=== PATIENT | female | born 1955 ===

== ENCOUNTER 2017-08-17 14:42 | Emergency (ER) | payer OTHER ==
[2017-08-17 14:48] VITALS: BP 132/75; PULSE 88; RESP 20; TEMP 97.9; O2SAT 98
--- NOTE | 2017-08-17 16:09 | ED PDOC ---
Lower Extremity Pain/Injury Time Seen by Provider: 08/17/17 15:16 Chief Complaint (Nursing): Lower Extremity Problem/Injury Chief Complaint (Provider): Right calf pain History Per: Patient History/Exam Limitations: no limitations Additional Complaint(s): 61yo female with history of CVA, presents to ED for evaluation of right calf pain. Patient states she was walking down the stairs and thought there was one more step, so when attempting to step down she felt a sharp pain in her right calf. She denies any other trauma or injuries. She also denies any chest pain, shortness of breath, recent long distance travel or immobilizations. Patient offers no other medical complaints. Past Medical History Reviewed: Historical Data, Nursing Documentation, Vital Signs Vital Signs: Last Vital Signs Temp 97.9 F 08/17/17 14:45 Pulse 88 08/17/17 14:45 Resp 20 08/17/17 14:45 BP 132/75 08/17/17 14:45 Pulse Ox 98 08/17/17 14:45 - Medical History PMH: Diabetes, HTN - Surgical History Surgical History: Cholecystectomy - Family History Family History: States: Unknown Family Hx - Immunization History Hx Tetanus Toxoid Vaccination: No (not sure of last tetanus) - Home Medications Home Medications: Ambulatory Orders Medication Instructions Recorded Atorvastatin [Lipitor] 40 mg PO DAILY #30 tab 12/01/15 Clopidogrel [Plavix] 75 mg PO DAILY #30 tab 12/01/15 GlipiZIDE [Glucotrol] 10 mg PO BID #0 tab 12/01/15 Losartan [Cozaar] 100 mg PO DAILY #0 tab 12/01/15 Metformin HCl 1,000 mg PO BID #0 tablet 12/01/15 amLODIPine [Norvasc] 5 mg PO DAILY #0 tab 12/01/15 Cephalexin [Keflex] 500 mg PO TID #21 capsule 02/23/16 - Allergies Allergies/Adverse Reactions: Allergies Allergy/AdvReac Type Severity Reaction Status Date / Time ibuprofen Allergy Mild RASH Verified 08/17/17 14:45 iodine Allergy RASH Verified 08/17/17 14:45 Review of Systems ROS Statement: Except As Marked, All Systems Reviewed And Found Negative Constitutional: Negative for: Fever, Sweats Cardiovascular: Negative for: Chest Pain Respiratory: Negative for: Shortness of Breath Musculoskeletal: Positive for: Leg Pain (right calf pain) Physical Exam - Reviewed Nursing Documentation Reviewed: Yes Vital Signs Reviewed: Yes - Physical Exam Appears: Positive for: Non-toxic, No Acute Distress Head Exam: Positive for: ATRAUMATIC, NORMAL INSPECTION, NORMOCEPHALIC Skin: Positive for: Normal Color Eye Exam: Positive for: Normal appearance Neck: Positive for: Supple Respiratory: Negative for: Accessory Muscle Use, Respiratory Distress Pulses-Dorsalis Pedis (L): 2+ Pulses-Dorsalis Pedis (R): 2+ Pulses-Post. Tibialis (L): 2+ Pulses-Post. Tibialis (R): 2+ Extremity: Positive for: Normal ROM, Calf Tenderness (marked tenderness to right calf), Other (achilles tendon palpable on right lower extremity, no changes compared to left achilles tendon). Negative for: Deformity, Swelling Neurologic/Psych: Positive for: Alert, Oriented. Negative for: Motor/Sensory Deficits - ECG O2 Sat by Pulse Oximetry: 98 (RA) Pulse Ox Interpretation: Normal Medical Decision Making Medical Decision Making: Impression: Right calf pain r/o DVT Plan: -- US Doppler RLE -- Tylenol PO (-) DVT Scribe Attestation: Documented by Tabitha Reddy, acting as a scribe for DOUGIE Alva. Provider Scribe Attestation: All medical record entries made by the Scribe were at my direction and personally dictated by me. I have reviewed the chart and agree that the record accurately reflects my personal performance of the history, physical exam, medical decision making, and the department course for this patient. I have also personally directed, reviewed, and agree with the discharge instructions and disposition. Disposition - Clinical Impression Clinical Impression: Muscle strain - Patient ED Disposition Is Patient to be Admitted: No Counseled Patient/Family Regarding: Diagnosis, Need For Followup - Disposition Referrals: Jake Moe DPM [[facility]] - Disposition: Routine/Home Disposition Time: 17:09 Condition: GOOD Instructions: Muscle Strain Forms: [employer] (Turkish) Print Language: MALAWIAN
--- NOTE | 2017-08-17 17:32 | US ---
PROCEDURE: Right lower extremity venous duplex Doppler. HISTORY: calf pain COMPARISON: None available. TECHNIQUE: Common femoral, superficial femoral, popliteal and posterior tibial veins were evaluated. Flow was assessed with color Doppler, compressibility, assessment of phasic flow and augmentation response. FINDINGS: COMMON FEMORAL VEIN: Unremarkable. SUPERFICIAL FEMORAL VEIN: Unremarkable. POPLITEAL VEIN: Unremarkable. POSTERIOR TIBIAL VEIN: Unremarkable. OTHER FINDINGS: None. IMPRESSION: No evidence of deep venous thrombosis in the right lower extremity.
== END 2017-08-17 17:50 | disposition home or self-care (01) ==
LOC: H.ER 14:42
DX: S86.811A Strain of other muscle(s) and tendon(s) at lower leg level, right leg, initial encounter (principal); Y92.89 Other specified places as the place of occurrence of the external cause; E11.9 Type 2 diabetes mellitus without complications; I10 Essential (primary) hypertension; Z79.84 Long term (current) use of oral hypoglycemic drugs

== ENCOUNTER 2017-09-20 15:46 | Emergency (ER) | payer OTHER ==
--- NOTE | 2017-09-20 16:23 | ED PDOC ---
Lower Extremity Pain/Injury Time Seen by Provider: 09/20/17 16:09 Chief Complaint (Nursing): Lower Extremity Problem/Injury History Per: Patient Onset/Duration Of Symptoms: Days (3) Current Symptoms Are (Timing): Still Present Severity: Mild Additional Complaint(s): Right calf pain x 3 days. Has been wearing boot for Achilles tendon injury x 3 weeks. Denies Chest pain or SOB. Past Medical History Vital Signs: Last Vital Signs Temp 98.5 F 09/20/17 15:48 Pulse 76 09/20/17 15:48 Resp 16 09/20/17 15:48 BP 123/68 09/20/17 15:48 Pulse Ox 100 09/20/17 15:48 - Medical History PMH: Diabetes, HTN - Surgical History Surgical History: Cholecystectomy - Family History Family History: States: Unknown Family Hx - Immunization History Hx Tetanus Toxoid Vaccination: No (not sure of last tetanus) - Home Medications Home Medications: Ambulatory Orders Medication Instructions Recorded Atorvastatin [Lipitor] 40 mg PO DAILY #30 tab 12/01/15 Clopidogrel [Plavix] 75 mg PO DAILY #30 tab 12/01/15 GlipiZIDE [Glucotrol] 10 mg PO BID #0 tab 12/01/15 Losartan [Cozaar] 100 mg PO DAILY #0 tab 12/01/15 Metformin HCl 1,000 mg PO BID #0 tablet 12/01/15 amLODIPine [Norvasc] 5 mg PO DAILY #0 tab 12/01/15 Cephalexin [Keflex] 500 mg PO TID #21 capsule 02/23/16 - Allergies Allergies/Adverse Reactions: Allergies Allergy/AdvReac Type Severity Reaction Status Date / Time ibuprofen Allergy Mild RASH Verified 09/20/17 16:05 iodine Allergy RASH Verified 09/20/17 16:05 Review of Systems Cardiovascular: Negative for: Chest Pain Respiratory: Negative for: Shortness of Breath Musculoskeletal: Positive for: Leg Pain Physical Exam - Physical Exam Appears: Positive for: Non-toxic, No Acute Distress Cardiovascular/Chest: Positive for: Regular Rate, Rhythm Respiratory: Positive for: CNT, Normal Breath Sounds Extremity: Negative for: Tenderness, Pedal Edema, Calf Tenderness, Swelling - ECG O2 Sat by Pulse Oximetry: 100 Disposition - Clinical Impression Clinical Impression: Calf pain - Patient ED Disposition Is Patient to be Admitted: Transfer of Care - Disposition Disposition: Transfer of Care Disposition Time: 16:51 Condition: FAIR Forms: [employer] (Georgian) Patient Signed Over To: Milton Alan
--- NOTE | 2017-09-20 17:18 | ED PDOC ---
- ECG O2 Sat by Pulse Oximetry: 100 (RA) Pulse Ox Interpretation: Normal Medical Decision Making Medical Decision Making: -- Patient signed to me by Dr. Anderson @ 1700, pending US. Time: 1740 EXTREMITY US RESULTS FINDINGS: COMMON FEMORAL VEIN: Unremarkable. SUPERFICIAL FEMORAL VEIN: Unremarkable. POPLITEAL VEIN: Unremarkable. POSTERIOR TIBIAL VEIN: Unremarkable. OTHER FINDINGS: None. IMPRESSION: No evidence of deep venous thrombosis in the right lower extremity. Time: 11b -- Patient to be discharged home. Scribe Attestation: Documented by Andrei Harp, acting as a scribe for Dr. Milton Alan MD Provider Scribe Attestation: All medical record entries made by the Scribe were at my direction and personally dictated by me. I have reviewed the chart and agree that the record accurately reflects my personal performance of the history, physical exam, medical decision making, and the department course for this patient. I have also personally directed, reviewed, and agree with the discharge instructions and disposition. Disposition - Clinical Impression Clinical Impression: Calf pain - POA Present On Arrival: None - Disposition Disposition: Routine/Home Disposition Time: 19:00 Condition: IMPROVED Additional Instructions: follow up with outpatient machine spreader in the office continue wearing the boot return to the ED with any worsening or concerning symptoms Instructions: Muscle and Bone Pain (DC) Forms: [employer] (Iranian)
[2017-09-20 20:37] VITALS: BP 124/69; PULSE 75; RESP 17; TEMP 98.1
[2017-09-20 23:26] VITALS: O2SAT 100
== END 2017-09-20 20:23 | disposition home or self-care (01) ==
LOC: H.ER 15:46
DX: M79.604 Pain in right leg (principal); E11.9 Type 2 diabetes mellitus without complications; I10 Essential (primary) hypertension; Z79.84 Long term (current) use of oral hypoglycemic drugs

== ENCOUNTER 2018-03-26 16:35 | Emergency (ER) | payer OTHER ==
[2018-03-26 16:44] VITALS: O2SAT 99
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
[2018-03-26 20:16] VITALS: BP 131/74; PULSE 79; RESP 15; TEMP 98.2
== END 2018-03-26 20:15 | disposition home or self-care (01) ==
LOC: H.ER 16:35
DX: G44.209 Tension-type headache, unspecified, not intractable (principal); R25.2 Cramp and spasm; E11.9 Type 2 diabetes mellitus without complications; I10 Essential (primary) hypertension; Z79.84 Long term (current) use of oral hypoglycemic drugs

== ENCOUNTER 2018-06-01 18:49 | Emergency (ER) | payer OTHER ==
[2018-06-01 19:04] VITALS: BP 156/72; PULSE 62; RESP 20; TEMP 97.9; O2SAT 100
[2018-06-01 21:12] LABS: BASO % 0.5 % (0.0-2.0); EOS # 0.1 K/uL (0.0-0.7); EOS % 2.4 % (0.0-4.0); HEMOGLOBIN 12.5 g/dL (12.0-16.0); LYMPH # 1.4 K/uL (1.0-4.3); LYMPH % 30.5 % (20.0-40.0); MEAN CELL VOLUME 90.2 fl (81.0-99.0); MEAN CORPUSCULAR HEMOGLOBIN 30.2 pg (27.0-31.0); MEAN CORPUSCULAR HGB CONC 33.5 g/dL (33.0-37.0); MEAN PLATELET VOLUME 7.6 fl (7.2-11.7); MONO # 0.4 K/uL (0.0-0.8); MONO % 9.3 % (0.0-10.0); NEUT # 2.6 K/uL (1.8-7.0); NEUT % 57.3 % (50.0-75.0); NRBC % 0.1 % (0.0-0.0); RBC 4.15 Mil/uL (3.80-5.20); RED CELL DISTRIBUTION WIDTH 12.7 % (11.5-14.5); WHITE BLOOD COUNT 4.5 K/uL (4.8-10.8)
[2018-06-01 21:17] LABS: ALB/GLOB RATIO 1.4 (1.0-2.1); ALBUMIN 4.1 g/dL (3.5-5.0); ALT/SGPT 30 U/L (9-52); AST/SGOT 27 U/L (14-36); BLOOD UREA NITROGEN 11 mg/dl (7-17); CALCIUM 9.4 mg/dL (8.4-10.2); GFR NON-AFRICAN AMERICAN > 60
[2018-06-01 21:39] LABS: SQUAMOUS EPITHIAL < 1 /hpf (0-5); URINE BILIRUBIN NEGATIVE (NEGATIVE); URINE BLOOD NEGATIVE (NEGATIVE); URINE CLARITY CLEAR (Clear); URINE COLOR STRAW (YELLOW); URINE GLUCOSE (UA) NEG (NEGATIVE); URINE LEUKOCYTE ESTERASE TRACE Leu/uL (Negative); URINE PROTEIN NEGATIVE (NEGATIVE); URINE UROBILINOGEN 0.2-1.0 mg/dL (0.2-1.0)
--- NOTE | 2018-06-01 22:21 | ED PDOC ---
HPI: CCC, URI, Sore Throat Time Seen by Provider: 06/01/18 19:37 Chief Complaint (Nursing): Cough, Cold, Congestion Chief Complaint (Provider): Cough, Chest Pain History Per: Patient History/Exam Limitations: no limitations Onset/Duration Of Symptoms: Days (x5) Current Symptoms Are (Timing): Still Present Additional Complaint(s): 62 year old female with pmhx including diabetes and CVA presents to the ED for evaluation of a cough productive of yellowish sputum for the past five days associated with a mild runny nose, mild sore throat, and chills. Denies fever and hemoptysis. Additionally, patient notes today she developed pleuritic chest pain, prompting her visit. PMD: Billy Crystal Past Medical History Reviewed: Historical Data Vital Signs: Last Vital Signs Temp 97.9 F 06/01/18 19:01 Pulse 62 06/01/18 19:01 Resp 20 06/01/18 19:01 BP 156/72 H 06/01/18 19:01 Pulse Ox 100 06/01/18 19:01 - Medical History PMH: CVA, Diabetes, HTN, Hypercholesterolemia - Surgical History Surgical History: Cholecystectomy, - Family History Family History: States: No Known Family Hx - Social History Current smoker - smoking cessation education provided: No - Immunization History Hx Tetanus Toxoid Vaccination: No (not sure of last tetanus) - Home Medications Home Medications: Ambulatory Orders Medication Instructions Recorded Atorvastatin [Lipitor] 40 mg PO DAILY #30 tab 12/01/15 Clopidogrel [Plavix] 75 mg PO DAILY #30 tab 12/01/15 GlipiZIDE [Glucotrol] 10 mg PO BID #0 tab 12/01/15 Losartan [Cozaar] 100 mg PO DAILY #0 tab 12/01/15 Metformin HCl 1,000 mg PO BID #0 tablet 12/01/15 amLODIPine [Norvasc] 5 mg PO DAILY #0 tab 12/01/15 Cephalexin [Keflex] 500 mg PO TID #21 capsule 02/23/16 Acetaminophen [Acetaminophen 8 650 mg PO Q8 PRN #21 tablet.er 03/26/18 Hour] Meloxicam [Mobic] 15 mg PO DAILY PRN #10 tab 03/26/18 Acetaminophen [Tylenol Extra 1,000 mg PO Q6 PRN #100 tablet 06/01/18 Strength] Azithromycin [Zithromax] 250 mg PO DAILY #6 dose 06/01/18 Benzonatate [Tessalon Perle] 200 mg PO TID PRN #30 capsule 06/01/18 - Allergies Allergies/Adverse Reactions: Allergies Allergy/AdvReac Type Severity Reaction Status Date / Time ibuprofen Allergy Mild RASH Verified 06/01/18 19:01 iodine Allergy RASH Verified 06/01/18 19:01 Review of Systems ROS Statement: Except As Marked, All Systems Reviewed And Found Negative (as per HPI) Constitutional: Positive for: Chills. Negative for: Fever ENT: Positive for: Nose Discharge (mild), Throat Pain (mild) Cardiovascular: Positive for: Chest Pain (pleuritic) Respiratory: Positive for: Cough, Sputum (yellowish). Negative for: Hemoptysis Physical Exam - Reviewed Nursing Documentation Reviewed: Yes Vital Signs Reviewed: Yes - Physical Exam Appears: Positive for: No Acute Distress (but tired appearing) Head Exam: Positive for: ATRAUMATIC, NORMOCEPHALIC Skin: Positive for: Warm, Dry Eye Exam: Positive for: EOMI, PERRL ENT: Negative for: Pharyngeal Erythema, Tonsillar Exudate Neck: Positive for: Painless ROM, Supple Cardiovascular/Chest: Positive for: Regular Rate, Rhythm. Negative for: Murmur Respiratory: Positive for: Normal Breath Sounds. Negative for: Respiratory Distress Gastrointestinal/Abdominal: Positive for: Soft. Negative for: Tenderness Back: Positive for: Normal Inspection. Negative for: Muscle Spasm Extremity: Positive for: Normal ROM. Negative for: Deformity Lymphatic: Negative for: Adenopathy Neurologic/Psych: Positive for: Alert. Negative for: Motor/Sensory Deficits - Laboratory Results Result Diagrams: 06/01/18 21:02 06/01/18 21:02 Lab Results: Troponin I < 0.0120 ng/mL (0.00-0.120) 06/01/18 21:02 Total Bilirubin 0.2 mg/dl (0.2-1.3) 06/01/18 21:02 AST 27 U/L (14-36) 06/01/18 21:02 ALT 30 U/L (9-52) 06/01/18 21:02 Alkaline Phosphatase 71 U/L (38-126) 06/01/18 21:02 Total Protein 7.1 G/DL (6.3-8.2) 06/01/18 21:02 Albumin 4.1 g/dL (3.5-5.0) 06/01/18 21:02 Globulin 3.0 gm/dL (2.2-3.9) 06/01/18 21:02 Albumin/Globulin Ratio 1.4 (1.0-2.1) 06/01/18 21:02 Urine Color Straw (YELLOW) 06/01/18 21:00 Urine Clarity Clear (Clear) 06/01/18 21:00 Urine pH 7.0 (5.0-8.0) 06/01/18 21:00 Ur Specific [place] 1.010 (1.003-1.030) 06/01/18 21:00 Urine Protein Negative mg/dL (NEGATIVE) 06/01/18 21:00 Urine Glucose (UA) Neg mg/dL (NEGATIVE) 06/01/18 21:00 Urine Ketones Negative mg/dL (NEGATIVE) 06/01/18 21:00 Urine Blood Negative (NEGATIVE) 06/01/18 21:00 Urine Nitrate Negative (NEGATIVE) 06/01/18 21:00 Urine Bilirubin Negative (NEGATIVE) 06/01/18 21:00 Urine Urobilinogen 0.2-1.0 mg/dL (0.2-1.0) 06/01/18 21:00 Ur Leukocyte Esterase Trace [place]/uL (Negative) 06/01/18 21:00 Urine RBC (Auto) 1 /hpf (0-3) 06/01/18 21:00 Urine Microscopic WBC 3 /hpf (0-5) 06/01/18 21:00 Ur Squamous Epith Cells < 1 /hpf (0-5) 06/01/18 21:00 - ECG O2 Sat by Pulse Oximetry: 100 (RA) Pulse Ox Interpretation: Normal Medical Decision Making Medical Decision Making: Time: 2009 Initial Impression: URI and chest pain DDx includes but is not limited to: pneumonia, influenza Initial Plan: --CMP --Lact acid --Trop I --U-dip --CBC with differential --CXR --Tylenol 975mg PO --Blood culture --Influenza A B swab --Urinalysis Scribe Attestation: Documented by Paige Lin acting as a scribe for Sera Ybarra MD. Provider Scribe Attestation: All medical record entries made by the Scribe were at my direction and personally dictated by me. I have reviewed the chart and agree that the record accurately reflects my personal performance of the history, physical exam, medical decision making, and the department course for this patient. I have also personally directed, reviewed, and agree with the discharge instructions and disposition. Disposition - Clinical Impression Clinical Impression: Bronchitis - Disposition Referrals: Billy Crystal MD [Family Provider] - 06/04/18 Disposition: Routine/Home Disposition Time: 23:34 Condition: STABLE Prescriptions: Acetaminophen [Tylenol Extra Strength] 1,000 mg PO Q6 PRN #100 tablet PRN Reason: FEVER OR PAIN Azithromycin [Zithromax] 250 mg PO DAILY #6 dose Benzonatate [Tessalon Perle] 200 mg PO TID PRN #30 capsule PRN Reason: Cough Instructions: Acute Bronchitis, Adult (DC)
--- NOTE | 2018-06-02 09:18 | RAD ---
HISTORY: cough chest pain COMPARISON: Chest x-ray performed 11/30/15 TECHNIQUE: Chest PA and lateral FINDINGS: LUNGS: No focal consolidation. Please note that chest x-ray has limited sensitivity for the detection of pulmonary masses. PLEURA: No significant pleural effusion identified. No definite pneumothorax . CARDIOVASCULAR: Heart size appears within normal limits. Atherosclerotic calcification of the aortic knob. OSSEOUS STRUCTURES: Osseous demineralization. Degenerative changes. Mild kyphosis. VISUALIZED UPPER ABDOMEN: Cholecystectomy clips. OTHER FINDINGS: None. IMPRESSION: No focal consolidation.
== END 2018-06-01 23:39 | disposition home or self-care (01) ==
LOC: H.ER 18:49
DX: J40 Bronchitis, not specified as acute or chronic (principal); E11.9 Type 2 diabetes mellitus without complications; I10 Essential (primary) hypertension; Z79.84 Long term (current) use of oral hypoglycemic drugs; Z86.73 Personal history of transient ischemic attack (TIA), and cerebral infarction without residual deficits